=== PATIENT | female | born 1940 | race Caucasian/White ===

== ENCOUNTER → 2018-07-12 | Outpatient (CLI) | payer OTHER ==
[~2018-07-12] MED LIST: ATENOLOL 25 MG25 M1 OR; BENICAR HCT 401 EAC1 PO; CALCIUM; FISHOIL; LOVENOX SC; MULTIPLE VITAM1 EAC3 PO; NORCO 5-325 TA1 EACH PO; OMEPRAZOLE20 MG PO; PAROXETINE HCL30 MG PO; SIMVASTATIN40 MG PO
== END ==
LOC: CAT 11:14
DX: J84.10 Pulmonary fibrosis, unspecified (principal); J98.4 Other disorders of lung; K44.9 Diaphragmatic hernia without obstruction or gangrene; M47.814 Spondylosis without myelopathy or radiculopathy, thoracic region; Z88.8 Allergy status to other drugs, medicaments and biological substances

== ENCOUNTER → 2019-09-12 | Outpatient (CLI) | payer OTHER | LOC: HYPER 09:02 | DX: S51.812A Laceration without foreign body of left forearm, initial encounter (principal); E03.9 Hypothyroidism, unspecified; E66.01 Morbid (severe) obesity due to excess calories; E78.5 Hyperlipidemia, unspecified; I10 Essential (primary) hypertension; G47.00 Insomnia, unspecified; J42 Unspecified chronic bronchitis; K21.9 Gastro-esophageal reflux disease without esophagitis; F41.9 Anxiety disorder, unspecified; Z90.710 Acquired absence of both cervix and uterus; Z85.42 Personal history of malignant neoplasm of other parts of uterus; Z68.38 Body mass index [BMI] 38.0-38.9, adult; W19.XXXA Unspecified fall, initial encounter; Y93.89 Activity, other specified; Y92.89 Other specified places as the place of occurrence of the external cause; Y99.8 Other external cause status ==

== ENCOUNTER → 2019-09-19 | Outpatient (CLI) | payer OTHER | LOC: HYPER 08:07 | PROVIDERS: ATTEND Emergency Medicine | DX: S51.812D Laceration without foreign body of left forearm, subsequent encounter (principal); I10 Essential (primary) hypertension; E78.5 Hyperlipidemia, unspecified; E03.9 Hypothyroidism, unspecified; E66.01 Morbid (severe) obesity due to excess calories; G47.00 Insomnia, unspecified; J42 Unspecified chronic bronchitis; K21.9 Gastro-esophageal reflux disease without esophagitis; F41.9 Anxiety disorder, unspecified; Z90.710 Acquired absence of both cervix and uterus; Z68.38 Body mass index [BMI] 38.0-38.9, adult; Z85.42 Personal history of malignant neoplasm of other parts of uterus; W19.XXXD Unspecified fall, subsequent encounter ==

== ENCOUNTER → 2019-09-27 | Outpatient (CLI) | payer OTHER | LOC: HYPER 13:36 | PROVIDERS: ATTEND Emergency Medicine | DX: S51.812D Laceration without foreign body of left forearm, subsequent encounter (principal); K50.90 Crohn's disease, unspecified, without complications; L59.8 Other specified disorders of the skin and subcutaneous tissue related to radiation; K21.9 Gastro-esophageal reflux disease without esophagitis; E78.5 Hyperlipidemia, unspecified; M19.90 Unspecified osteoarthritis, unspecified site; E03.9 Hypothyroidism, unspecified; I12.9 Hypertensive chronic kidney disease with stage 1 through stage 4 chronic kidney disease, or unspecified chronic kidney disease; N18.3 Chronic kidney disease, stage 3 (moderate); G47.00 Insomnia, unspecified; F41.9 Anxiety disorder, unspecified; Z91.81 History of falling; Z85.42 Personal history of malignant neoplasm of other parts of uterus; Z90.710 Acquired absence of both cervix and uterus; W19.XXXD Unspecified fall, subsequent encounter; Y84.2 Radiological procedure and radiotherapy as the cause of abnormal reaction of the patient, or of later complication, without mention of misadventure at the time of the procedure ==

== ENCOUNTER → 2019-10-11 | Outpatient (CLI) | payer OTHER | LOC: HYPER 08:43 | PROVIDERS: ATTEND Emergency Medicine Emergency Medical Services | DX: S51.812D Laceration without foreign body of left forearm, subsequent encounter (principal); E78.5 Hyperlipidemia, unspecified; E03.9 Hypothyroidism, unspecified; E66.01 Morbid (severe) obesity due to excess calories; I10 Essential (primary) hypertension; J42 Unspecified chronic bronchitis; M19.90 Unspecified osteoarthritis, unspecified site; K21.9 Gastro-esophageal reflux disease without esophagitis; F41.9 Anxiety disorder, unspecified; Z90.710 Acquired absence of both cervix and uterus; Z85.41 Personal history of malignant neoplasm of cervix uteri; Z68.38 Body mass index [BMI] 38.0-38.9, adult; W19.XXXD Unspecified fall, subsequent encounter ==

== ENCOUNTER → 2019-10-25 | Outpatient (CLI) | payer OTHER | LOC: HYPER 10:30 | PROVIDERS: ATTEND Emergency Medicine | DX: S51.812D Laceration without foreign body of left forearm, subsequent encounter (principal); K50.90 Crohn's disease, unspecified, without complications; K21.9 Gastro-esophageal reflux disease without esophagitis; E78.5 Hyperlipidemia, unspecified; M19.019 Primary osteoarthritis, unspecified shoulder; E03.9 Hypothyroidism, unspecified; I12.9 Hypertensive chronic kidney disease with stage 1 through stage 4 chronic kidney disease, or unspecified chronic kidney disease; N18.3 Chronic kidney disease, stage 3 (moderate); G47.00 Insomnia, unspecified; F41.9 Anxiety disorder, unspecified; Z85.42 Personal history of malignant neoplasm of other parts of uterus; Z90.710 Acquired absence of both cervix and uterus; W19.XXXD Unspecified fall, subsequent encounter ==

== ENCOUNTER → 2019-11-14 | Outpatient (CLI) | payer OTHER | LOC: SJCVC 13:00 | PROVIDERS: ATTEND Internal Medicine Cardiovascular Disease | DX: I25.10 Atherosclerotic heart disease of native coronary artery without angina pectoris (principal); R94.31 Abnormal electrocardiogram [ECG] [EKG]; I44.0 Atrioventricular block, first degree; I49.9 Cardiac arrhythmia, unspecified; E78.00 Pure hypercholesterolemia, unspecified; J84.10 Pulmonary fibrosis, unspecified; I10 Essential (primary) hypertension; I65.23 Occlusion and stenosis of bilateral carotid arteries; Z79.899 Other long term (current) drug therapy ==